=== PATIENT | female | born 1995 | race Caucasian/White ===

== ENCOUNTER 2016-07-01 20:08 | Emergency (ER) | payer MEDICAID, OTHER ==
[2016-07-01 21:20] LABS: Hematocrit 41 % (35-47); Hemoglobin 13.9 g/dl (12.0-16.0); Mean Corpuscular HGB Conc 34 g/dl (31-36); Mean Corpuscular Hemoglobin 32 pg (27-31); Mean Corpuscular Volume 93 fL (80-97); Mean Platelet Volume 8 um3 (7.4-10.4); Red Cell Distribution Width 13 % (10.5-15); White Blood Count 5.7 10^3/ul (3.5-10.8)
[2016-07-01 21:34] LABS: Albumin 4.4 g/dL (3.2-5.2); BUN/Creatinine Ratio 15.9 (8-20); Calcium 9.2 mg/dL (8.6-10.3); EGFR African American 138.1 (>60); EGFR Non-African American 107.4 (>60); Globulin 2.9 g/dL (2-4); Potassium 3.5 mmol/L (3.5-5.0); Total Bilirubin 0.3 mg/dL (0.2-1.0); Total Protein 7.3 g/dL (6.4-8.9)
[2016-07-01] MEDS ORDERED: Iohexol 300* (CONTRAST) 10 ML SDV IV ONE ×2 (21:52→22:48)
--- NOTE | 2016-07-01 23:13 | RAD ---
INDICATION: Lump in the neck, history of thyroid cancer. COMPARISON: There are no prior studies available for comparison. TECHNIQUE: A CT scan of the neck was performed with intravenous contrast following intravenous injection of 50 ml of Omnipaque 300 nonionic contrast. Contiguous axial sections were obtained from the skull base through the lung apices. Images were reconstructed in the coronal and sagittal planes. FINDINGS: The airway is patent. The epiglottis and aryepiglottic folds appear within normal limits. No retropharyngeal soft tissue swelling is noted. The patient appears to be status post thyroidectomy. There are multiple metallic densities most consistent with surgical clips present in the mid and lower portion of the neck causing artifact limiting the evaluation. No enlarged lymph nodes are seen by size criteria. A BB was placed over the patient's prior abnormality in the midline. At that level there is a cystic structure located anterior to the thyroid cartilage centered just to the left of the midline which extends superior along the posterior aspect of the hyoid bone. This measures 2.7 cm craniocaudad by 1.5 cm transverse by 1.0 cm AP. 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 The parotid and submandibular glands appear to be within normal limits. The superior mediastinum appears within normal limits. The lung apices appear clear. The visualized portion of the paranasal sinuses and mastoid air cells appear clear. No significant focal osseous abnormality is seen. IMPRESSION: THERE IS A CYSTIC STRUCTURE CORRESPONDING TO THE PATIENT'S PALPABLE ABNORMALITY IN THE ANTERIOR NECK. THE APPEARANCE WOULD BE MOST CONSISTENT WITH A THYROGLOSSAL DUCT CYST MUCH LESS LIKELY NECROTIC LYMPHADENOPATHY IN THIS PATIENT WITH A HISTORY OF THYROID CANCER. RECOMMEND ENT FOLLOW-UP.
--- NOTE | 2016-07-01 23:25 | ED ---
Throat Pain/Nasal Congestion - HPI Summary HPI Summary: 21 F presents with neck swelling for many days. She has a PMH of thyroid CA and had her thyroid removed. She says that she noticed some pain a couple days ago and felt her neck and noticed some swelling. She denies any fever, sore throat, chest pain, or SOB. - History of Current Complaint Chief Complaint: EDNeckComplaint Time Seen by Provider: 07/01/16 20:33 - Allergies/Home Medications Allergies/Adverse Reactions: Allergies Allergy/AdvReac Type Severity Reaction Status Date / Time No Known Allergies Allergy Verified 07/01/16 20:19 PMH/Surg Hx/FS Hx/Imm Hx Endocrine/Hematology History: Reports: Other Endocrine/Hematological Disorders - thyroid CA Cardiovascular History: Denies: Hx Hypertension - Cancer History Cancer Type, Location and Year: THYROID - Surgical History Surgery Procedure, Year, and Place: THYROIDECTOMY Infectious Disease History: No Infectious Disease History: Denies: Traveled Outside the [place] in Last 30 Days - Family History Known Family History: Negative: Cardiac Disease - Social History Alcohol Use: Occasionally Substance Use Type: Reports: None Smoking Status (MU): Never Smoked Tobacco Review of Systems Negative: Fever Positive: Other - neck pain and swelling Negative: Chest Pain Negative: Shortness Of Breath All Other Systems Reviewed And Are Negative: Yes Physical Exam Triage Information Reviewed: Yes Vital Signs On Initial Exam: Initial Vitals Temp Pulse Resp BP Pulse Ox 98.8 F 80 16 132/77 100 07/01/16 20:19 07/01/16 20:19 07/01/16 20:19 07/01/16 20:19 07/01/16 20:19 Vital Signs Reviewed: Yes Appearance: Positive: Well-Appearing Skin: Positive: Warm, Dry Head/Face: Positive: Normal Head/Face Inspection Eyes: Positive: Normal, Conjunctiva Clear ENT: Positive: Normal ENT inspection, Pharynx normal, TMs normal Neck: Positive: No Lymphadenopathy, Other: - cyst like strucutre felt above level of hyoid bone with tenderness, Respiratory/Lung Sounds: Positive: Clear to Auscultation, Breath Sounds Present Cardiovascular: Positive: Normal, RRR Diagnostics - Vital Signs Vital Signs Temp Pulse Resp BP Pulse Ox 07/01/16 20:19 98.8 F 80 16 132/77 100 - Laboratory Lab Results: Lab Results 07/01/16 07/01/16 Range/Units 21:05 21:05 WBC 5.7 (3.5-10.8) 10^3/ul RBC 4.40 (4.0-5.4) 10^6/ul Hgb 13.9 (12.0-16.0) g/dl Hct 41 (35-47) % MCV 93 (80-97) fL MCH 32 H (27-31) pg MCHC 34 (31-36) g/dl RDW 13 (10.5-15) % Plt Count 244 (150-450) 10^3/ul MPV 8 (7.4-10.4) um3 Neut % (Auto) 59.8 (38-83) % Lymph % (Auto) 29.6 (25-47) % [place] % (Auto) 6.9 (1-9) % Eos % (Auto) 2.5 (0-6) % Baso % (Auto) 1.2 (0-2) % Absolute Neuts (auto) 3.4 (1.5-7.7) 10^3/ul Absolute Lymphs (auto) 1.7 (1.0-4.8) 10^3/ul Absolute Monos (auto) 0.4 (0-0.8) 10^3/ul Absolute Eos (auto) 0.1 (0-0.6) 10^3/ul Absolute Basos (auto) 0.1 (0-0.2) 10^3/ul Absolute Nucleated RBC 0 10^3/ul Nucleated RBC % 0.1 Sodium 137 (133-145) mmol/L Potassium 3.5 (3.5-5.0) mmol/L Chloride 106 (101-111) mmol/L Carbon Dioxide 27 (22-32) mmol/L Anion Gap 4 (2-11) mmol/L BUN 11 (6-24) mg/dL Creatinine 0.69 (0.51-0.95) mg/dL Est GFR ( Amer) 138.1 (>60) Est GFR (Non-Af Amer) 107.4 (>60) BUN/Creatinine Ratio 15.9 (8-20) Glucose 91 (70-100) mg/dL Calcium 9.2 (8.6-10.3) mg/dL Total Bilirubin 0.30 (0.2-1.0) mg/dL AST 19 (13-39) U/L ALT 12 (7-52) U/L Alkaline Phosphatase 48 (34-104) U/L Total Protein 7.3 (6.4-8.9) g/dL Albumin 4.4 (3.2-5.2) g/dL Globulin 2.9 (2-4) g/dL Albumin/Globulin Ratio 1.5 (1-3) Result Diagrams: 07/01/16 21:05 07/01/16 21:05 Lab Statement: Any lab studies that have been ordered have been reviewed, and results considered in the medical decision making process. - CT neck CT Interpretation: Positive (See Comments) - IMPRESSION: THERE IS A CYSTIC STRUCTURE CORRESPONDING TO THE PATIENT'S PALPABLE ABNORMALITY IN THE ANTERIOR NECK. THE APPEARANCE WOULD BE MOST CONSISTENT WITH A THYROGLOSSAL DUCT CYST MUCH LESS LIKELY NECROTIC LYMPHADENOPATHY IN THIS PATIENT WITH A HISTORY OF THYROID CANCER. RECOMMEND ENT FOL CT Interpretation Completed By: Radiologist EENT Course/Dx - Course Course Of Treatment: 21 F presents with neck pain and swelling for a couple days. admits to difficulty swallowing. cyst like structure felt in neck, labs normal, CT showed thyroglossal cyst duct, will have follow up with ENT, patient agrees with plan - Differential Diagnoses Differential Diagnoses: Other - lymphadenitis, cyst, tumor - Diagnoses Provider Diagnoses: Localized swelling, mass and lump, neck Discharge - Discharge Plan Condition: Good Disposition: HOME Referrals: No Primary Care Phys,NOPCP [Primary Care Provider] - Rich Monroe MD [Medical Doctor] - Additional Instructions: Follow up with ENT Take Tylenol or ibuprofen for pain Return to ED if develop any new or worsening symptoms
[2016-07-01 23:51] VITALS: BP 108/68
== END 2016-07-01 23:50 | disposition home or self-care (01) ==
LOC: ED 20:08
DX: R22.1 Localized swelling, mass and lump, neck (principal); M54.2 Cervicalgia
CPT/HCPCS: 36415; 70491; 80053; 85025; 99282; Q9967